=== PATIENT | male | born 1945 | race Caucasian/White ===

== ENCOUNTER 2021-12-30 16:01 | Emergency (ER) | payer MEDICARE ==
[2021-12-30] MEDS ORDERED: KEFLEX250 MG PO (19:06)
[2021-12-30] MEDS ORDERED: NORCO 5/3251 EACH PO (19:06)
== END 2021-12-30 19:59 | disposition home or self-care (01) ==
LOC: FER 16:01
DX: S02.2XXA Fracture of nasal bones, initial encounter for closed fracture (principal); S01.512A Laceration without foreign body of oral cavity, initial encounter; S01.21XA Laceration without foreign body of nose, initial encounter; Z23 Encounter for immunization; W10.9XXA Fall (on) (from) unspecified stairs and steps, initial encounter; Y92.009 Unspecified place in unspecified non-institutional (private) residence as the place of occurrence of the external cause
CPT/HCPCS: 70450; 70486; 90471; 90715